=== PATIENT | female | born 1935 | race Caucasian/White ===

== ENCOUNTER 2017-11-26 21:58 | Inpatient (IN) | payer OTHER ==
[~2017-11-26] VITALS: Ht 170.2 cm; Wt 74.8 kg
[~2017-11-26 21:58] MED LIST: ALPRAZOLAM0.25 M2 PO; APRESOLINE50 MG PO; ATACAND32 MG PO; Atacand PO; Coumadin Protocol PO; ELIQUIS5 MG PO; FLONASE16 G1 BOTH NARES; Feosol PO; Flexeril PO; GERITOL COMP1 TABLET PO; IMDUR60 MG PO; IRON325 M1 PO; LIPITOR40 MG PO; OSTEO BI-FLEX1 EAC1 PO; TOPAMAX100 MG PO; TRIAMTERENE-HC1 EACH PO; TYLENOL EXTRA500 MG PO; TYLENOL WITH C1 EACH PO; VERAPAMIL HCL240 MG PO; VERAPAMIL HCL360 MG PO; VITAMIN D2000 UNIT PO; Xanax PO; ZYRTEC10 M3 PO; celeBREX PO
[2017-11-27 06:28] VITALS: BP 189/73
[2017-11-27 13:04] VITALS: BP 213/86
[2017-11-27 15:49] VITALS: BP 205/84
[2017-11-27 17:26] LABS: CHLORIDE 114 MEQ/L (99-109); CREATININE 1.3 MG/DL (0.6-1.3); GFR ESTIMATE (CALCULATED) 42 mL/min/; GLUCOSE 115 mg/dL (70-99); POTASSIUM 3.6 MEQ/L (3.7-5.4); SODIUM 143 MEQ/L (136-147); UREA NITROGEN (BUN) 47 mg/dL (9-23)
[2017-11-27 19:02] LABS: HEMATOCRIT 31.2 % (36.0-46.0); MCV 91.8 FL (83-99)
[2017-11-27 20:31] VITALS: BP 173/76
[2017-11-28 00:12] VITALS: BP 162/68
[2017-11-28 04:25] VITALS: BP 162/62
[2017-11-28 07:23] LABS: CHLORIDE 115 MEQ/L (99-109); CREATININE 1.5 MG/DL (0.6-1.3); GFR ESTIMATE (CALCULATED) 35 mL/min/; GLUCOSE 100 mg/dL (70-99); POTASSIUM 4.1 MEQ/L (3.7-5.4); SODIUM 143 MEQ/L (136-147); UREA NITROGEN (BUN) 41 mg/dL (9-23)
[2017-11-28 08:17] VITALS: BP 162/78
[2017-11-28 11:47] VITALS: BP 158/60
[2017-11-28 20:03] VITALS: BP 170/62
[2017-11-29] VITALS: BP 164/68
[2017-11-29 04:12] VITALS: BP 174/66
[2017-11-29 06:45] LABS: CHLORIDE 110 MEQ/L (99-109); CREATININE 1.2 MG/DL (0.6-1.3); GFR ESTIMATE (CALCULATED) 46 mL/min/; GLUCOSE 115 mg/dL (70-99); POTASSIUM 4.2 MEQ/L (3.7-5.4); SODIUM 141 MEQ/L (136-147); UREA NITROGEN (BUN) 37 mg/dL (9-23)
[2017-11-29 08:49] VITALS: BP 178/80
[2017-11-29] MEDS ORDERED: ELIQUIS2.5 MG PO (10:16)
[2017-11-29] MEDS ORDERED: TRAMADOL HCL50 MG PO (10:18)
[2017-11-29 12:10] VITALS: BP 147/70
[2017-11-29 20:19] VITALS: BP 174/68
[2017-11-30 00:05] VITALS: BP 170/73
[2017-11-30 04:30] VITALS: BP 174/76
[2017-11-30 08:00] VITALS: BP 158/70
[2017-11-30 12:26] VITALS: BP 168/88
[2017-11-30 19:13] VITALS: BP 150/80
[2017-12-01 00:39] VITALS: BP 158/78
[2017-12-01 05:47] VITALS: BP 160/70
[2017-12-01 07:20] VITALS: BP 140/62
== END 2017-12-01 14:00 | DRG 470 ==
LOC: ENRESERV 21:58 → 2SOUTH 11-27 05:34 → 3WEST 11-27 05:34 → 2SOUTH 11-27 14:29 → ENRESERV 11-30 17:24 → 3EAST 11-30 18:02
PROVIDERS: Nurse Practitioner Family; Orthopaedic Surgery
PROC: 0SRC0J9 Replacement of Right Knee Joint with Synthetic Substitute, Cemented, Open Approach (ICD-10-PCS; principal; 2017-11-27)
DX: M17.11 Unilateral primary osteoarthritis, right knee (principal); Z96.652 Presence of left artificial knee joint; I10 Essential (primary) hypertension; Z79.01 Long term (current) use of anticoagulants; E78.5 Hyperlipidemia, unspecified; N28.9 Disorder of kidney and ureter, unspecified
CPT/HCPCS: 71045; 80048; 85014; 85018; 97530 GP; C1713; J0690; J1885; J2250; J2405; J2795; J7030; J7050; L1820; S0020

== ENCOUNTER 2018-01-09 11:31 | Emergency (ER) | payer OTHER ==
[~2018-01-09] VITALS: Ht 170.2 cm; Wt 73.8 kg
[~2018-01-09 11:31] MED LIST changes: +ELIQUIS2.5 MG PO; +TRAMADOL HCL50 MG PO
[2018-01-09 13:39] LABS: HEMATOCRIT 33.7 % (36.0-46.0); HEMOGLOBIN 11.1 G/DL (11.9-15.5); MCH 30.5 PG (29.0-34.0); MCHC 32.9 G/DL (30.0-36.0); MCV 92.6 FL (83-99); PLATELET COUNT 275 K/uL (156-360); RBC DIS.WIDTH-CV 13.9 % (11.8-14.6); RBC DIS.WIDTH-SD 47.4 % (39-53); RED BLOOD COUNT 3.64 M/uL (3.80-5.20); WHITE BLOOD COUNT 6.9 K/uL (4.1-10.2)
[2018-01-09 13:48] LABS: CHLORIDE 110 mEq/L (99-109); POTASSIUM 4.1 mEq/L (3.7-5.4); SODIUM 142 mEq/L (136-147)
[2018-01-09 13:50] LABS: GLUCOSE 104 mg/dL (70-99); INTER. NORMALIZED RATIO 1.8
[2018-01-09 13:52] LABS: PTT 34.6 SEC (25-37)
[2018-01-09 13:54] LABS: CREATININE 1.2 mg/dL (0.6-1.3); GFR ESTIMATE (CALCULATED) 45 mL/min/; UREA NITROGEN (BUN) 30 mg/dL (9-23)
[2018-01-09 14:14] LABS: C-REACTIVE PROTEIN 11.9 MG/L (0-10)
[2018-01-09 14:40] LABS: TROP-I INTERPRETATION NEGATIVE; TROPONIN-I < 0.01 ng/mL (0.0-0.30)
[2018-01-09 14:58] LABS: ERTH.SED.RATE 28 MM/HR (0-30)
[2018-01-09] MEDS ORDERED: TEGRETOL100 MG PO (15:32)
[2018-01-09] MEDS ORDERED: ULTRAM50 MG PO (16:10)
[2018-01-09 16:43] VITALS: BP 174/76
== END 2018-01-09 16:44 | disposition home or self-care (01) ==
LOC: EME 11:31
PROVIDERS: Physician Assistant
DX: G50.0 Trigeminal neuralgia (principal); Z79.01 Long term (current) use of anticoagulants; K21.9 Gastro-esophageal reflux disease without esophagitis; F41.9 Anxiety disorder, unspecified; N18.9 Chronic kidney disease, unspecified; Z96.659 Presence of unspecified artificial knee joint
CPT/HCPCS: 70450; 71046; 80048; 84484; 85027; 85610; 85651; 85730; 86140; 99281; 99283